=== PATIENT | female | born 1995 | race Caucasian/White ===

== ENCOUNTER → 2024-09-16 | Outpatient (REF) | payer OTHER ==
[2024-09-16 14:52] LABS: BASO # 0.1 10^3/uL (0.0-0.2); BASO % 0.8 % (0.0-1.0); EOS # 0.2 10^3/uL (0.0-0.5); EOS % 2.8 % (0.0-3.0); LYMPH # 3.0 10^3/uL (1.5-5.0); LYMPH % 37.5 % (24.0-44.0); MONO # 0.6 10^3/uL (0.0-0.8); MONO % 7.4 % (2.0-8.0); NEUTROPHILS # 4.1 10^3/uL (1.5-8.5); NEUTROPHILS % 51.4 % (36.0-66.0); PLATELET COUNT, AUTOMATED 270 10^3/uL (150-450)
[2024-09-16 15:06] LABS: ALT/SGPT 12 U/L (7.0-40); AST/SGOT 17 U/L (<34); CALCIUM LEVEL 9.3 MG/DL (8.5-10.1); CARBON DIOXIDE LEVEL 27 MMOL/L (20-31); CHLORIDE LEVEL 104 MMOL/L (98-107); CREATININE FOR GFR 0.85 MG/DL (0.55-1.30); GLOMERULAR FILTRATION RATE > 90.0 (>60); POTASSIUM SERUM 4.2 MMOL/L (3.5-5.1); SODIUM LEVEL 141 MMOL/L (136-145)
== END ==
LOC: M LABWUC 13:51 → M LAB REF 13:51
PROVIDERS: ATTEND Student in an Organized Health Care Education/Training Program
DX: R10.30 Lower abdominal pain, unspecified (principal)

== ENCOUNTER 2024-09-29 18:00 | Inpatient (IN) | payer OTHER ==
[~2024-09-29] VITALS: Ht 175.3 cm; Wt 74.1 kg
[2024-09-29 19:21] LABS: PLATELET COUNT, AUTOMATED 284 10^3/uL (150-450)
[2024-09-29 19:49] LABS: AMPHETAMINES LEVEL URINE NEGATIVE (NEGATIVE); BARBITURATES URINE NEGATIVE (NEGATIVE); BENZODIAZEPINES URINE NEGATIVE (NEGATIVE); CANNABINOIDS URINE NEGATIVE (NEGATIVE); COCAINE METABOLITE URINE NEGATIVE (NEGATIVE); METHADONE URINE NEGATIVE (NEGATIVE); OPIATES URINE NEGATIVE (NEGATIVE); PHENCYCLIDINE URINE NEGATIVE (NEGATIVE)
[2024-09-29 19:53] LABS: ETHYL ALCOHOL (ETHANOL) < 0.003 % (0.000-0.010)
[2024-09-29 19:55] LABS: ALT/SGPT 11 U/L (7.0-40); AST/SGOT 15 U/L (<34); CALCIUM LEVEL 8.8 MG/DL (8.5-10.1); CARBON DIOXIDE LEVEL 24 MMOL/L (20-31); CHLORIDE LEVEL 107 MMOL/L (98-107); CREATININE FOR GFR 0.82 MG/DL (0.55-1.30); GLOMERULAR FILTRATION RATE > 90.0 (>60); HCG, SERUM QUALITATIVE POSITIVE (NEGATIVE); POTASSIUM SERUM 3.9 MMOL/L (3.5-5.1); SALICYLATE LEVEL < 3.0 MG/DL (<30); SODIUM LEVEL 143 MMOL/L (136-145)
[2024-09-29 20:29] LABS: HCG, SERUM QUANTITATIVE < 2.6 MIU/ML (<4.2)
[2024-09-29] MEDS ORDERED: ACET-683 PO (20:30)
[2024-09-29] MEDS ORDERED: HOME MED LIST COMPLETE! XX SCH (20:35)
[2024-09-29 22:12] LABS: URINE PREG TEST NEGATIVE (NEGATIVE)
[2024-09-30] MEDS ORDERED: MAALOX 30 ML SUSP *UDC PO PRN (13:55)
[2024-09-30] MEDS ORDERED: MOM 30 ML SUSPENSION UDC PO PRN (13:55)
[2024-09-30] MEDS ORDERED: IBUPROFEN 400 MG TAB PO PRN (13:55)
[2024-09-30 15:40] VITALS: BP 111/68; TEMP 97.7; O2SAT 99
[2024-09-30] MEDS: ACETAMINOPHEN 325 MG TAB PO PRN (20:10)
[2024-10-01 06:18] VITALS: BP 110/72; TEMP 97.8; O2SAT 99
[2024-10-01 15:30] VITALS: BP 106/73; TEMP 98; O2SAT 98
[2024-10-02 06:21] VITALS: BP 113/56; TEMP 98.5; O2SAT 99
[2024-10-02 12:37] VITALS: BP 113/56; TEMP 98.5; O2SAT 99
[2024-10-02 14:39] VITALS: BP 124/84; TEMP 98.4; O2SAT 99
[2024-10-03 06:53] VITALS: BP 125/61; TEMP 98.3; O2SAT 98
[2024-10-03 15:38] VITALS: BP 115/74; TEMP 98.7; O2SAT 97
[2024-10-03] MEDS: traZODone 50 MG TAB PO PRN (21:01)
[2024-10-04 06:59] VITALS: BP 111/66; TEMP 97.9; O2SAT 99
[2024-10-04] MEDS ORDERED: FLUV50TA PO (09:04)
[2024-10-04] MEDS ORDERED: TRAZ-252 PO (09:04)
== END 2024-10-04 12:28 | disposition home or self-care (01) | DRG 885 ==
LOC: M ED 18:00 → M ED INP 09-30 13:54 → M PSY 09-30 15:36
PROVIDERS: ADMIT General Practice; ATTEND General Practice
DX: F32.2 Major depressive disorder, single episode, severe without psychotic features (principal); R45.851 Suicidal ideations; F41.1 Generalized anxiety disorder; F42.9 Obsessive-compulsive disorder, unspecified; Z63.5 Disruption of family by separation and divorce; Z81.1 Family history of alcohol abuse and dependence; Z81.8 Family history of other mental and behavioral disorders; M79.662 Pain in left lower leg

== ENCOUNTER 2024-10-08 00:40 | Inpatient (IN) | payer OTHER ==
[~2024-10-08] VITALS: Ht 175.3 cm; Wt 75.0 kg
[~2024-10-08 00:40] MED LIST: ACET-683 PO; FLUV50TA PO; TRAZ-252 PO
[2024-10-08 01:18] LABS: BASO # 0.1 10^3/uL (0.0-0.2); BASO % 0.6 % (0.0-1.0); EOS # 0.2 10^3/uL (0.0-0.5); EOS % 2.7 % (0.0-3.0); LYMPH # 4.1 10^3/uL (1.5-5.0); LYMPH % 47.9 % (24.0-44.0); MONO # 0.6 10^3/uL (0.0-0.8); MONO % 7.1 % (2.0-8.0); NEUTROPHILS # 3.6 10^3/uL (1.5-8.5); NEUTROPHILS % 41.6 % (36.0-66.0); PLATELET COUNT, AUTOMATED 280 10^3/uL (150-450)
[2024-10-08 01:37] LABS: AMPHETAMINES LEVEL URINE NEGATIVE (NEGATIVE)
[2024-10-08 01:38] LABS: BARBITURATES URINE NEGATIVE (NEGATIVE); BENZODIAZEPINES URINE NEGATIVE (NEGATIVE); CANNABINOIDS URINE NEGATIVE (NEGATIVE); COCAINE METABOLITE URINE NEGATIVE (NEGATIVE); METHADONE URINE NEGATIVE (NEGATIVE); OPIATES URINE NEGATIVE (NEGATIVE); PHENCYCLIDINE URINE NEGATIVE (NEGATIVE)
[2024-10-08 01:52] LABS: ETHYL ALCOHOL (ETHANOL) 0.003 % (0.000-0.010)
[2024-10-08 01:54] LABS: ALT/SGPT 11 U/L (7.0-40); AST/SGOT 19 U/L (<34); CALCIUM LEVEL 9.2 MG/DL (8.5-10.1); CARBON DIOXIDE LEVEL 25 MMOL/L (20-31); CHLORIDE LEVEL 104 MMOL/L (98-107); CREATININE FOR GFR 0.89 MG/DL (0.55-1.30); GLOMERULAR FILTRATION RATE > 90.0 (>60); POTASSIUM SERUM 4.0 MMOL/L (3.5-5.1); SALICYLATE LEVEL < 3.0 MG/DL (<30); SODIUM LEVEL 141 MMOL/L (136-145)
[2024-10-08 02:30] LABS: CPK CREATINE PHOSPHOKINASE 51 U/L (34-145)
[2024-10-08] MEDS: NS (Normal Saline) 0.9% 1,000 ML IV ONE (03:47)
[2024-10-08] MEDS: NICOTINE 14 MG/24 HR TRANSDERMAL TD SCH (09:00)
[2024-10-08] MEDS ORDERED: FLUV50TA PO (09:21)
[2024-10-08] MEDS ORDERED: TRAZ-252 PO (09:21)
[2024-10-08] MEDS ORDERED: HOME MED LIST COMPLETE! XX SCH (09:25)
[2024-10-08] MEDS ORDERED: MOM 30 ML SUSPENSION UDC PO PRN (11:35)
[2024-10-08] MEDS ORDERED: LORazepam 1 MG TAB PO PRN (11:35)
[2024-10-08] MEDS ORDERED: IBUPROFEN 400 MG TAB PO PRN (11:35)
[2024-10-08] MEDS ORDERED: MAALOX 30 ML SUSP *UDC PO PRN (11:35)
[2024-10-08] MEDS ORDERED: HALOPERIDOL 5 MG TAB PO PRN (11:35)
[2024-10-08] MEDS ORDERED: traZODone 50 MG TAB PO PRN (11:35)
[2024-10-08] MEDS ORDERED: OLANZapine 5 MG TAB PO PRN (11:35)
[2024-10-08 14:48] VITALS: BP 98/55; TEMP 97.6; O2SAT 97
[2024-10-08 15:59] LABS: HCG, SERUM QUANTITATIVE < 2.6 MIU/ML (<4.2)
[2024-10-08 21:00] VITALS: BP 104/68; TEMP 98; O2SAT 100
[2024-10-09 06:37] VITALS: BP 104/58; TEMP 98.3; O2SAT 98
[2024-10-09 15:12] VITALS: BP 110/75; TEMP 98.4; O2SAT 100
[2024-10-09] MEDS: QUEtiapine FUMARATE 50MG TAB PO SCH (20:12)
[2024-10-10 06:27] VITALS: BP 99/66; TEMP 98.6; O2SAT 98
[2024-10-10 14:53] VITALS: BP 123/77; TEMP 98.4; O2SAT 100
[2024-10-11 06:32] VITALS: BP 109/72; TEMP 98.6; O2SAT 99
[2024-10-11] MEDS: ACETAMINOPHEN 325 MG TAB PO PRN (08:13)
[2024-10-11 15:11] VITALS: BP 103/64; TEMP 98.4; O2SAT 100
[2024-10-12 06:40] VITALS: BP 112/66; TEMP 97.9; O2SAT 99
[2024-10-12 14:41] VITALS: BP 118/60; TEMP 98.9; O2SAT 100
[2024-10-13 06:39] VITALS: BP 123/71; TEMP 98.7; O2SAT 98
[2024-10-13] MEDS ORDERED: QUET50TA4 PO (14:25)
[2024-10-13] MEDS ORDERED: HYDR-3363 PO (14:25)
[2024-10-13 15:04] VITALS: BP 119/67; TEMP 98.4; O2SAT 100
[2024-10-14 06:00] VITALS: BP 111/71; TEMP 98.4; O2SAT 98
== END 2024-10-14 11:03 | disposition home or self-care (01) | DRG 880 ==
LOC: M ED 00:40 → M ED INP 11:32 → M PSY 14:07
PROVIDERS: ADMIT Internal Medicine; ATTEND Internal Medicine
DX: F41.1 Generalized anxiety disorder (principal); F33.1 Major depressive disorder, recurrent, moderate; F41.0 Panic disorder [episodic paroxysmal anxiety]; Z79.899 Other long term (current) drug therapy

== ENCOUNTER 2025-02-03 08:23 | Inpatient (IN) | payer OTHER ==
[~2025-02-03] VITALS: Ht 175.3 cm; Wt 80.9 kg
[~2025-02-03 08:23] MED LIST changes: +HYDR-3363 PO; +QUET50TA4 PO
[2025-02-03 08:51] LABS: BASO # 0.1 10^3/uL (0.0-0.2); BASO % 0.8 % (0.0-1.0); EOS # 0.1 10^3/uL (0.0-0.5); EOS % 1.0 % (0.0-3.0); LYMPH # 2.1 10^3/uL (1.5-5.0); LYMPH % 26.3 % (24.0-44.0); MONO # 0.4 10^3/uL (0.0-0.8); MONO % 5.5 % (2.0-8.0); NEUTROPHILS # 5.1 10^3/uL (1.5-8.5); NEUTROPHILS % 65.9 % (36.0-66.0); PLATELET COUNT, AUTOMATED 256 10^3/uL (150-450)
[2025-02-03] MEDS: NS (Normal Saline) 0.9% 1,000 ML IV ONE (08:54)
[2025-02-03 09:14] LABS: ETHYL ALCOHOL (ETHANOL) < 0.003 % (0.000-0.010); SALICYLATE LEVEL < 3.0 MG/DL (<30)
[2025-02-03 09:15] LABS: ALT/SGPT 11 U/L (7.0-40); AST/SGOT 19 U/L (<34); CALCIUM LEVEL 8.3 MG/DL (8.5-10.1); CARBON DIOXIDE LEVEL 27 MMOL/L (20-31); CHLORIDE LEVEL 104 MMOL/L (98-107); CPK CREATINE PHOSPHOKINASE 79 U/L (34-145); CREATININE FOR GFR 0.81 MG/DL (0.55-1.30); GLOMERULAR FILTRATION RATE > 90.0 (>60); POTASSIUM SERUM 3.7 MMOL/L (3.5-5.1); SODIUM LEVEL 140 MMOL/L (136-145)
[2025-02-03 09:19] LABS: HCG, SERUM QUALITATIVE POSITIVE (NEGATIVE)
[2025-02-03 10:01] LABS: AMPHETAMINES LEVEL URINE NEGATIVE (NEGATIVE); BARBITURATES URINE NEGATIVE (NEGATIVE); BENZODIAZEPINES URINE NEGATIVE (NEGATIVE); COCAINE METABOLITE URINE NEGATIVE (NEGATIVE); METHADONE URINE NEGATIVE (NEGATIVE)
[2025-02-03 10:02] LABS: CANNABINOIDS URINE NEGATIVE (NEGATIVE); OPIATES URINE NEGATIVE (NEGATIVE); PHENCYCLIDINE URINE NEGATIVE (NEGATIVE)
[2025-02-03 10:24] LABS: HCG, SERUM QUANTITATIVE < 2.6 MIU/ML (<4.2)
[2025-02-03] MEDS ORDERED: HOME MED LIST COMPLETE! XX SCH (14:45)
[2025-02-03] MEDS ORDERED: traZODone 50 MG TAB PO PRN (15:50)
[2025-02-03] MEDS ORDERED: MAALOX 30 ML SUSP *UDC PO PRN (15:50)
[2025-02-03] MEDS ORDERED: IBUPROFEN 400 MG TAB PO PRN (15:50)
[2025-02-03] MEDS ORDERED: ACETAMINOPHEN 325 MG TAB PO PRN (15:50)
[2025-02-03] MEDS ORDERED: MOM 30 ML SUSPENSION UDC PO PRN (15:50)
[2025-02-04 06:30] VITALS: BP 123/62; TEMP 97.5; O2SAT 99
[2025-02-04] MEDS: ESCITALOPRAM OXALATE 5 MG TABLET PO SCH (09:51)
[2025-02-04 15:11] VITALS: BP 120/73; TEMP 97.8; O2SAT 98
[2025-02-05 06:10] VITALS: BP 107/65; TEMP 97.8; O2SAT 98
[2025-02-05] MEDS: buPROPion **XL** 150 MG TABLET PO SCH (09:33)
[2025-02-05 15:37] VITALS: BP 114/72; TEMP 97.5; O2SAT 100
[2025-02-06 05:50] VITALS: BP 112/59; TEMP 98.3; O2SAT 97
[2025-02-06 15:33] VITALS: BP 120/76; TEMP 97.9; O2SAT 100
[2025-02-07 00:53] VITALS: BP 120/76; TEMP 97.9; O2SAT 100
[2025-02-07 06:04] VITALS: BP 117/62; TEMP 97.7; O2SAT 99
[2025-02-07] MEDS ORDERED: LEXA5TAB13 PO (08:49)
[2025-02-07] MEDS ORDERED: BUPR150T12 PO (08:49)
== END 2025-02-07 10:19 | disposition home or self-care (01) | DRG 885 ==
LOC: M ED 08:23 → M ED INP 15:49 → M PSY 16:30
PROVIDERS: ADMIT General Practice; ATTEND General Practice
DX: F33.2 Major depressive disorder, recurrent severe without psychotic features (principal); F60.3 Borderline personality disorder; F50.819 Binge eating disorder, unspecified; Z63.0 Problems in relationship with spouse or partner; Z56.89 Other problems related to employment; Z91.51 Personal history of suicidal behavior; Z91.52 Personal history of nonsuicidal self-harm; Z79.899 Other long term (current) drug therapy; F41.1 Generalized anxiety disorder